=== PATIENT | female | born 1990 | race Caucasian/White ===

== ENCOUNTER 2019-09-14 11:47 | Inpatient (IN) | payer OTHER ==
[~2019-09-14] VITALS: Ht 154.9 cm; Wt 97.0 kg
--- NOTE | ~2019-09-14 | OR ---
[facility] [address] [place], [place] [address] Draft DATE OF OPERATION: 09/15/2019 SURGEON: José Miguel May DO PREOPERATIVE DIAGNOSES: 1. Intrauterine at 40 weeks 6 days gestation. 2. Non-reassuring heart tracing. POSTOPERATIVE DIAGNOSES: 1. Intrauterine at 40 weeks 6 days gestation. 2. Non-reassuring heart tracing. PROCEDURES PERFORMED: Primary low transverse delivery. [employer] MOUNT[employer]: Antonio Gonzales MD. ANESTHESIA: Epidural and spinal. COMPLICATIONS: None. ESTIMATED BLOOD LOSS: 800 mL. SPECIMENS: Cord blood for gases. FINDINGS: Viable female weighing 6 pounds 14 ounces with Apgars of 4, 7 and 9 at 1, 5, and 10 minutes respectively. ROP presentation with a thick meconium noted. Nuchal cord x2 tight around the neck and cord also looped around the body/shoulder. Uterus with multiple small subserosal fibroids and normal tubes and ovaries. INDICATIONS: Ms. Qiu is a pleasant 29-year-old G1 white female, who presents to Labor and Delivery for elective induction of labor at 40 weeks and 5 days gestation. Cervix was unfavorable and she received 2 doses of Cytotec and then progressed into labor. She PATIENT NAME: MELVIN QIU OPERATIVE REPORT DATE OF : [birth year] REPORT #: [id number] PHYSICIAN: JOSÉ MIGUEL MAY DO PCP: NO PRIMARY CARE PHYSICIAN REPORT IS CONFIDENTIAL AND NOT TO BE RELEASED WITHOUT AUTHORIZATION [facility] [address] [place], [place] [address] Draft spontaneously ruptured for meconium-stained fluid. Patient developed recurrent late decelerations with minimal variability as well as several prolonged decelerations. Intrauterine resuscitation was attempted. A scalp electrode was placed and an intrauterine pressure catheter was placed. The patient failed intrauterine resuscitation and was felt to be remote from delivery. Decision was made to proceed with primary low transverse delivery. Risks, benefits, and alternatives were discussed in detail with the patient. The patient understands and wishes to proceed with the procedure. TECHNIQUE: The patient was taken to the operating room where a time-out was performed to confirm correct patient, correct procedure. An epidural had been placed for labor and decision was made to proceed with spinal for . A Mariscal catheter had been previously inserted. The patient received Ancef 2 g preoperatively. The patient was then prepped and draped in the supine position with a bump on the right hip. Spinal anesthetic was tested and found to be adequate. A Pfannenstiel skin incision was made and carried down to the fascia. The fascia was nicked in the midline with a surgical scalpel and fascial incision was extended bilaterally using Monsivais scissors. The fascia was grasped with Russell's elevated and the underlying rectus was dissected sharply and bluntly. The rectus muscles were then divided in the midline bluntly and peritoneum was entered bluntly. Peritoneal incision was extended bilaterally using blunt dissection. The survey of the abdomen and pelvis was performed with the above findings. An Maksim self-retractor was placed and hysterotomy was then performed through the lower uterine segment. Thick meconium was noted. Surgeon's hand was placed in the uterine incision after it was extended bilaterally using blunt dissection. The head was elevated into the abdomen and delivered with the assistance of fundal pressure. Nuchal cord x2 around the neck was tight, was noted and reduced. An additional loop of cord was around the baby's shoulder and body. The remainder of the delivered with the assistance of fundal pressure. Cord was quickly clamped and cut and the was handed to the waiting pediatric team for further care. Portion of the cord was obtained for cord gases. Cord blood was obtained for routine analysis and the placenta was manually expressed intact with a centrally inserted 3-vessel cord. The uterus was cleared of any remaining products of conception and clot. Pitocin was given per protocol. The uterus was initially somewhat boggy. This improved with massage and with closure of the hysterotomy. Hysterotomy was then repaired using 0 Vicryl in a running locked stitch. A 2nd imbricating stitch of 0 Vicryl was applied in a vertical manner with good imbrication noted. Oozing was noted in the midline and this was made hemostatic with two [id number] sutures of 0 Vicryl. The pelvis was irrigated and found to be hemostatic. Small subserosal fibroids were noted on the anterior aspect of the uterus and the tubes and ovaries were normal. The pelvis was irrigated and again found to be hemostatic. ACell sheet was applied to the lower uterine segment. Peritoneum was then reapproximated using 2-0 Vicryl in a running nonlocked manner. PATIENT NAME: MELVIN QIU OPERATIVE REPORT DATE OF : [birth year] REPORT #: [id number] PHYSICIAN: JOSÉ MIGUEL MAY DO PCP: NO PRIMARY CARE PHYSICIAN REPORT IS CONFIDENTIAL AND NOT TO BE RELEASED WITHOUT AUTHORIZATION [address] [address] Draft Rectus was examined and found to be hemostatic. It was loosely approximated in the midline with three interrupted stitches sutures of 0 Vicryl. ACell powder was applied to the rectus sheath. Fascia was then reapproximated using 0 Vicryl in a running nonlocked manner. Subcu was irrigated and made hemostatic with Bovie electrocautery. Subcu was then closed using 2-0 Vicryl in a running nonlocked manner. Skin was reapproximated using surgical kiersten. The uterus was Crede'd for approximately 100 mL of blood. The patient was then taken to the PACU in good and stable condition. Sponge, needle, instrument count were correct x2 at the end of the procedure. Dr. Gonzales was present and participated in all portions of the procedure. José Miguel May DO JDW/MODL /[id number] Copies: ~ PATIENT NAME: MELVIN QIU OPERATIVE REPORT DATE OF : [birth year] REPORT #: [id number] PHYSICIAN: JOSÉ MIGUEL MAY DO PCP: NO PRIMARY CARE PHYSICIAN REPORT IS CONFIDENTIAL AND NOT TO BE RELEASED WITHOUT AUTHORIZATION
--- NOTE | 2019-09-14 21:54 | PR ---
[facility] [address] [place], [place] [address] Signed Progress Notes IP Datetime Report Generated by KEVAN: 09/14/2019 21:54 PROGRESS NOTES: [id number] Impression: Normal progression of labor; Reassuring heart rate Procedures: Sterile Vag Exam Plan: Continue present management Other Informed Consents: Anticipated course of labor / epidural VITAL SIGNS: [id number] Vital Signs: Reviewed; Within Normal Limits EXAM: [id number] Dilatation: 1.0 Effacement: 90 Station: -3 Uterine Contractions: q 1-3 min MEMBRANES: [id number] Membrane Status: Intact Comments: Pt seen and examined. Doing well. Ctxs more frequent and intense; rating 8/10. Considering epidural. Cervix very thin. Plan expectant management. Epidural on demand. Consider pitocin augmentation if indicated. Reviewd POC w/ pt and RN. Pt BP's slightly elevated. Denies KIMBROUGH, RUQ pain, or visual changes. Likely secondary to discomfort, but will watch. Fetus A: [id number] FHR Baseline: 130 Variability: Moderate 6-25bpm Accelerations: 15X15 Decelerations: None FHR Category: Category I Presentation: Vertex Comments on Fetus A: No evidence of metabolic acidosis Fetus B: [id number] Signing Physician: José Miguel May DO Copies: ~ *Electronically Signed* 09/14/19 3985 JOSÉ MIGUEL MAY DO PATIENT NAME: MELVIN QUINONES PROGRESS NOTE DATE OF : [birth year] PHYSICIAN: JOSÉ MIGUEL MAY DO [facility] #: [id number] REPORT IS CONFIDENTIAL AND NOT TO BE RELEASED WITHOUT AUTHORIZATION
--- NOTE | 2019-09-15 04:08 | PR ---
[facility] [address] [place], [place] [address] Signed Progress Notes IP Datetime Report Generated by KEVAN: 09/15/2019 04:08 PROGRESS NOTES: [id number] Impression: Normal progression of labor; Non-reassuring heart rate Procedures: Intrauterine Pressure Catheter; Sterile Vag Exam Plan: Continue present management Other Plans: Intrauterine recussitaion Informed Consent Obtain: Vaginal Delivery; Section Delivery Other Informed Consents: Anticipated course of labor / epidural VITAL SIGNS: [id number] Vital Signs: Reviewed EXAM: [id number] Dilatation: 6.5 Effacement: 100 Station: -2 Uterine Contractions: Not tracing well MEMBRANES: [id number] Membrane Status: Ruptured Amniotic Fluid Color: Meconium Comments: Called to patient's room for decelerations. Pt w/ minimal variability and late decelerations, w/ few prolonged decels. Pt s/p epidural without significant hypotension. SROM at 2:36 w/ particulate meconium noted by RN. Intrauterine recussitation w/ IVF bolus and position changes. IUPC was placed after verbal consent to help evaluate as external tocometer not tracing contractions well. Cx 6.5cm/ 100 / -2 station noted. Discussed FHT and progression of labor. Discussed indications for delivery and likely need for this if FHT does not significantly improve. Pt understands and agrees. Fetus A: [id number] FHR Baseline: 145 Variability: Minimal - Undetectable to <5bpm Accelerations: None Decelerations: Late; Prolonged FHR Category: Category II Presentation: Vertex Comments on Fetus A: No evidence of metabolic acidosis Fetus B: [id number] Signing Physician: José Miguel May DO *Electronically Signed* 09/15/19407 JOSÉ MIGUEL MAY DO PATIENT NAME: MELVIN QUINONESAINE PROGRESS NOTE DATE OF : [birth year] PHYSICIAN: JOSÉ MIGUEL MAY DO RPT #: [id number] REPORT IS CONFIDENTIAL AND NOT TO BE RELEASED WITHOUT AUTHORIZATION [address] [address] Signed Copies: ~ *Electronically Signed* 09/15/19407 JOSÉ MIGUEL MAY DO PATIENT NAME: MELVIN QUINONES PROGRESS NOTE DATE OF : [birth year] PHYSICIAN: JOSÉ MIGUEL MAY DO RPT #: [id number] REPORT IS CONFIDENTIAL AND NOT TO BE RELEASED WITHOUT AUTHORIZATION
--- NOTE | 2019-09-15 04:16 | PR ---
[facility] [address] [place], [place] [address] Signed Progress Notes IP Datetime Report Generated by KEVAN: 09/15/2019 04:16 PROGRESS NOTES: [id number] Impression: Non-reassuring heart rate Procedures: Intrauterine Pressure Catheter; Sterile Vag Exam Plan: Deliver- Section Other Plans: Intrauterine recussitaion Informed Consent Obtain: Section Delivery Other Informed Consents: Anticipated course of labor / epidural VITAL SIGNS: [id number] Vital Signs: Reviewed; Within Normal Limits EXAM: [id number] Dilatation: 6.5 Effacement: 100 Station: -2 Uterine Contractions: Not tracing well MEMBRANES: [id number] Membrane Status: Ruptured Amniotic Fluid Color: Meconium Comments: PT w/ continued late decelerations despite intrauterine rescussitiation attempts. Remote from delivery. Recommended delivery via urgent C/S. Pt understands and agrees. OR crew, anesthesia, and Dr. Gonzales called. Fetus A: [id number] FHR Baseline: 150 Variability: Minimal - Undetectable to <5bpm Accelerations: None Decelerations: Late FHR Category: Category II Presentation: Vertex Comments on Fetus A: Cannot assure normal acid/base status due to Fetus B: [id number] Signing Physician: José Miguel May DO Copies: ~ *Electronically Signed* 09/15/19 0416 JOSÉ MIGUEL MAY DO PATIENT NAME: MELVIN QUINONES PROGRESS NOTE DATE OF : [birth year] PHYSICIAN: JOSÉ MIGUEL MAY DO RPT #: [id number] REPORT IS CONFIDENTIAL AND NOT TO BE RELEASED WITHOUT AUTHORIZATION
--- NOTE | 2019-09-15 05:49 | NUR ---
09/15/19 0549 Sheets,Cheryl 0528 PT ARRIVED TO PACU ON RA, VSS. PT DENIES PAIN AND NAUSEA. PT EDUCATION GIVEN ON FUNDAL CHECKS AND SPINAL. IV INFUSING AND WNL. 0534 BABY TO CHEST. 0547 MD AT BEDSIDE TALKING TO PT.
--- NOTE | 2019-09-16 10:33 | PR ---
[facility] [address] [facility] [place], [place] [address] Signed PP Progress Notes Datetime Report Generated by CPN: 09/16/2019 10:33 SUBJECTIVE: [id number] Pain: Within normal limits Nausea/Vomiting: Denies Flatus: Yes Vital Signs: [id number] Vital Signs: Reviewed EXAM: [id number] Cardiovascular: Normal Respiratory: Normal Abdomen/Uterus: Normal Lochia: Normal Vulva/Perineum: Not Done Breasts: Not Done CVA Tenderness: Normal Extremities: Normal Incision: Normal Progress: Normal Exam Comments: Fundus firm U-2 nontender, incision healing well IMPRESSION/PLAN/PROCEDURES: [id number] Impression: Normal progression Plan: Continue present management Progress Notes: Pt doing well pp. No complaints. Continue working w/ . Anticipate d/c home tomorrow Signing Physician: José Miguel May DO Copies: ~ *Electronically Signed* 09/16/19 1033 JOSÉ MIGUEL MAY DO PATIENT NAME: MELVIN QUINONES PROGRESS NOTE DATE OF : [birth year] PHYSICIAN: JOSÉ MIGUEL MAY DO RPT #: [id number] REPORT IS CONFIDENTIAL AND NOT TO BE RELEASED WITHOUT AUTHORIZATION
[2019-09-17] MEDS ORDERED: PRENATAL VITAM1 EACH PO (00:33)
--- NOTE | 2019-09-17 11:04 | PR ---
[facility] [address] [facility] [place], [place] [address] Signed PP Progress Notes Datetime Report Generated by CPN: 09/17/2019 11:04 SUBJECTIVE: [id number] Pain: Within normal limits Nausea/Vomiting: Denies Flatus: Yes Vital Signs: [id number] Vital Signs: Reviewed; Within Normal Limits EXAM: [id number] Cardiovascular: Normal Respiratory: Normal Abdomen/Uterus: Normal Lochia: Normal Vulva/Perineum: Not Done Breasts: Not Done CVA Tenderness: Normal Extremities: Normal Incision: Normal Progress: Normal Exam Comments: Fundus firm U-2 nontender, incision healing well IMPRESSION/PLAN/PROCEDURES: [id number] Impression: Normal progression Plan: Discharge Procedures: None Progress Notes: Doing well, without complaint. Ready to go home. Signing Physician: Sherley Blue MD Copies: ~ *Electronically Signed* 09/17/19 1104 SHERLEY BLUE MD PATIENT NAME: MELVIN QUINONES PROGRESS NOTE DATE OF : [birth year] PHYSICIAN: SHERLEY BLUE MD RPT #: [id number] REPORT IS CONFIDENTIAL AND NOT TO BE RELEASED WITHOUT AUTHORIZATION
== END 2019-09-17 13:12 | disposition home or self-care (01) | DRG 788 ==
LOC: FBC 11:47
PROVIDERS: ADMIT Obstetrics & Gynecology
PROC: 3E0P7VZ Introduction of Hormone into Female Reproductive, Via Natural or Artificial Opening (ICD-10-PCS; 2019-09-14)
PROC: 00HU33Z Insertion of Infusion Device into Spinal Canal, Percutaneous Approach (ICD-10-PCS; 2019-09-14)
PROC: 3E0R3BZ Introduction of Anesthetic Agent into Spinal Canal, Percutaneous Approach (ICD-10-PCS; 2019-09-14)
PROC: 10H07YZ Insertion of Other Device into Products of Conception, Via Natural or Artificial Opening (ICD-10-PCS; 2019-09-15)
PROC: 10D00Z1 Extraction of Products of Conception, Low, Open Approach (ICD-10-PCS; principal; 2019-09-15 04:51)
DX: O99.214 Obesity complicating childbirth (principal); E66.9 Obesity, unspecified; Z3A.40 40 weeks gestation of pregnancy; Z37.0 Single live birth; O76 Abnormality in fetal heart rate and rhythm complicating labor and delivery; O69.1XX0 Labor and delivery complicated by cord around neck, with compression, not applicable or unspecified; O77.0 Labor and delivery complicated by meconium in amniotic fluid; O99.334 Smoking (tobacco) complicating childbirth; F17.210 Nicotine dependence, cigarettes, uncomplicated; O69.82X0 Labor and delivery complicated by other cord entanglement, without compression, not applicable or unspecified; O99.324 Drug use complicating childbirth; F12.90 Cannabis use, unspecified, uncomplicated
CPT/HCPCS: 01961; 36415; 82803; 85027; A9270; J0690; J1650; J1885; J2001; J2274; J2405; J2590; J2795; J3010; J7121

== ENCOUNTER 2020-06-01 23:09 | Emergency (ER) | payer OTHER ==
[~2020-06-01] VITALS: Ht 154.9 cm; Wt 96.6 kg
[~2020-06-01 23:09] MED LIST: PRENATAL VITAM1 EACH PO
== END 2020-06-02 00:49 | disposition home or self-care (01) ==
LOC: ED 23:09
DX: M23.92 Unspecified internal derangement of left knee (principal); W00.9XXA Unspecified fall due to ice and snow, initial encounter
CPT/HCPCS: 73560; 73700; 99284-25

== ENCOUNTER 2024-05-16 20:19 | Emergency (ER) | payer OTHER ==
[~2024-05-16] VITALS: Ht 154.9 cm; Wt 89.0 kg
[2024-05-16 21:29] LABS: INFLUENZA B NAA NEGATIVE (NEGATIVE); RESPIRATORY SYNCYTIAL VIR NAA NEGATIVE (NEGATIVE)
[2024-05-16] MEDS ORDERED: AMOX TR-K CLV1 EAC1 PO (21:43)
[2024-05-16] MEDS ORDERED: methylPREDNISolone 4 MG HOME.PACK PO ONE (21:45)
[2024-05-16 21:58] VITALS: BP 107/74
== END 2024-05-16 22:00 | disposition home or self-care (01) ==
LOC: ED 20:19
PROVIDERS: Family Medicine
DX: J32.9 Chronic sinusitis, unspecified (principal)
CPT/HCPCS: 87502; 87651; 99283; U0002

== ENCOUNTER 2025-06-01 13:11 | Emergency (ER) | payer OTHER ==
[~2025-06-01] VITALS: Ht 154.9 cm; Wt 95.0 kg
[~2025-06-01 13:11] MED LIST changes: +AMOX TR-K CLV1 EAC1 PO
[2025-06-01] MEDS ORDERED: IBUPROFEN 600 MG TAB PO ONE (16:30)
[2025-06-01] MEDS ORDERED: PENICILLIN V POTASSIUM 500 MG TAB PO ONE (16:30)
[2025-06-01] MEDS ORDERED: HYDROCODONE/ACETA 7.5/325 TAB PO ONE (16:30)
[2025-06-01] MEDS ORDERED: HYDROCODON-ACE1 EA11 PO (16:33)
[2025-06-01] MEDS ORDERED: PENICILLIN V P500 MG PO (16:33)
[2025-06-01 16:57] VITALS: BP 138/86
== END 2025-06-01 16:58 | disposition home or self-care (01) ==
LOC: ED 13:11
DX: J02.0 Streptococcal pharyngitis (principal)
CPT/HCPCS: 87651; 99283; A9270